=== PATIENT | female | born 1970 | race Hispanic/Latino ===

== ENCOUNTER 2017-07-01 18:41 | Emergency (ER) | payer BC ==
[2017-07-01 21:51] LABS: ALT (SGPT) 17 U/L (8-55); AST (SGOT) 25 U/L (5-34); Albumin 3.9 g/dL (3.5-5.0); Alkaline Phosphatase 85 U/L (40-150); Anion Gap 11 mmol/L (10-20); BUN (Urea Nitrogen) 13 mg/dL (7.0-18.7); Bilirubin, Total 0.7 mg/dL (0.2-1.2); Calc. Creatinine Clearance 0 mL/min (70-130); Calcium 8.8 mg/dL (7.8-10.44); Carbon Dioxide 24 mmol/L (22-29); Chloride 107 mmol/L (98-107); Estimated GFR-MDRD Greater than 90; Globulin 3.1 g/dL (2.4-3.5); Glucose 88 mg/dL (70-105); Magnesium 1.9 mg/dL (1.6-2.6); Potassium 3.6 mmol/L (3.5-5.1); Sodium 138 mmol/L (136-145)
[2017-07-01 21:55] LABS: CKMB 5.2 ng/mL (0-6.6); Troponin I Less than 0.010 ng/mL (< 0.028)
== END 2017-07-01 23:04 | disposition home or self-care (01) ==
LOC: ERS 18:41
DX: R51 Headache (principal)
CPT/HCPCS: 36415; 80053; 82553; 83735; 84484; 93005

== ENCOUNTER 2017-08-07 07:13 | Outpatient (CLI) | payer BC, OTHER | END 2017-08-07 07:14 | disposition home or self-care (01) | LOC: BICMRI 07:13 | PROVIDERS: ATTEND Psychiatry & Neurology Neurology | DX: G44.1 Vascular headache, not elsewhere classified (principal) | CPT/HCPCS: 70553 ==

== ENCOUNTER 2017-08-31 07:57 | Outpatient (CLI) | payer BC | END 2017-08-31 07:58 | disposition home or self-care (01) | LOC: BICMAMMO 07:57 | PROVIDERS: ATTEND Family Medicine | DX: Z12.31 Encounter for screening mammogram for malignant neoplasm of breast (principal) | CPT/HCPCS: 77063; 77067 ==

== ENCOUNTER 2019-04-01 07:58 | Outpatient (CLI) | payer BC ==
--- NOTE | 2019-04-01 08:49 | MMO ---
Bilateral MAMMO Bilat Screen [facility]. CLINICAL HISTORY: Patient is 48 years old and is seen for screening. The patient has no family history of breast cancer. The patient has no personal history of cancer. VIEWS: The views performed were: bilateral craniocaudal with tomosynthesis and bilateral mediolateral oblique with tomosynthesis. FILMS COMPARED: The present examination has been compared to prior imaging studies performed at [facility] on 01/08/2009, 12/30/2010, 12/15/2013 and 08/31/2017. This study has been interpreted with the assistance of computer-aided detection. MAMMOGRAM FINDINGS: There are scattered fibroglandular densities. There are stable benign appearing calcifications seen in both breasts. There are also vascular calcifications. There are no suspicious masses, suspicious calcifications, or new areas of architectural distortion. IMPRESSION: THERE IS NO MAMMOGRAPHIC EVIDENCE OF MALIGNANCY. A ROUTINE FOLLOW-UP MAMMOGRAM IN 1 YEAR IS RECOMMENDED. THE RESULTS OF THIS EXAM WERE SENT TO THE PATIENT. ACR BI-RADS Category 2 - Benign finding MAMMOGRAPHY NOTE: 1. A negative mammogram report should not delay a biopsy if a dominant of clinically suspicious mass is present. 2. Approximately 10% to 15% of breast cancers are not detected by mammography. 3. Adenosis and dense breasts may obscure an underlying neoplasm. Reported by: LIBRA FALCON MD Electonically Signed: [id number]
== END 2019-04-01 07:59 | disposition home or self-care (01) ==
LOC: BICMAMMO 07:58
PROVIDERS: ATTEND Physician Assistant Medical
DX: Z12.31 Encounter for screening mammogram for malignant neoplasm of breast (principal)
CPT/HCPCS: 77063; 77067

== ENCOUNTER 2019-07-25 11:14 | Emergency (ER) | payer BC, OTHER ==
[2019-07-25 18:49] LABS: SARS-CoV-2 MS2 Positive; SARS-CoV-2 N Gene Positive; SARS-CoV-2 S Gene Positive; SARS-CoV-2 orf1ab Positive
== END 2019-07-25 11:51 | disposition home or self-care (01) ==
LOC: ERS 11:14
DX: U07.1 COVID-19 (principal); R05 Cough; I10 Essential (primary) hypertension; F32.9 Major depressive disorder, single episode, unspecified; Z79.899 Other long term (current) drug therapy
CPT/HCPCS: 87635; 99283; U0003

== ENCOUNTER 2019-08-10 14:43 | Emergency (ER) | payer BC, OTHER ==
[~2019-08-10 14:43] MED LIST: Iopamidol-370 76% 500 ML 1 ML ONE
[2019-08-10 15:53] LABS: #Eosinphils 0.2 thou/uL (0.0-0.7); #Lymphocytes 2.7 thou/uL (1.20-3.40); #Monocytes 0.7 thou/uL (0.11-0.59); #Neutrophils 4.5 thou/uL (1.40-6.50); %Basophils 0.3 % (0.0-1.0); %Eosinophils 2.8 % (0.0-10.0); %Lymphocytes 33.3 % (21.0-51.0); %Monocytes 8.2 % (0.0-10.0); %Neutrophils 55.4 % (42.0-75.0); Mean Corpuscular Hemoglobin 30.2 pg (27.0-31.0); Mean Platelet Volume 7.2 fL (7.4-10.4); Platelet Count 316 thou/uL (130-400); RBC Distribution Width 11.8 % (11.5-14.5); Red Blood Cell (RBC) Count 4.29 mill/uL (4.20-5.40); White Blood Cell (WBC) Count 8.1 thou/uL (4.8-10.8)
[2019-08-10 16:16] LABS: ALT (SGPT) 37 U/L (8-55); AST (SGOT) 37 U/L (5-34); Alkaline Phosphatase 99 U/L (40-110); Anion Gap 13 mmol/L (10-20); BUN (Urea Nitrogen) 16 mg/dL (7.0-18.7); Bilirubin, Total 0.7 mg/dL (0.2-1.2); Calc. Creatinine Clearance 0 mL/min (70-130); Carbon Dioxide 25 mmol/L (22-29); Chloride 106 mmol/L (98-107); Estimated GFR-MDRD Greater than 90; Globulin 3.7 g/dL (2.4-3.5); Glucose 87 mg/dL (70-105); Potassium 4.4 mmol/L (3.5-5.1); Protein, Total 7.7 g/dL (6.0-8.3); Sodium 140 mmol/L (136-145)
--- NOTE | 2019-08-10 16:46 | CT ---
CTA CHEST WITH CONTRAST: 08/10/19 Axial tomograms obtained with multiplanar reconstruction and 3D postprocessing following an angio pro tocol. INDICATIONS: Positive COVID-19. Cough. Shortness of breath. FINDINGS: Pulmonary arteries show normal opacification. No evidence of pulmonary embolus. Thoracic aorta shows no evidence of dissection or aneurysm. Review of the lung meredith shows no evidence of infiltrate. Mild atelectasis in the lingula peripheral ly. No effusion. No adenopathy. Images through upper abdomen again reveals a large calcified gallston e in the neck of the gallbladder. This was described on a prior exam. There is a 3 mm nodule in the mid left lung, left upper lobe. This nodule was present on the CT chest of 2017 and is stable. IMPRESSION: 1. No evidence of pulmonary embolus. 2. No evidence of lung infiltrate or other acute process. 3. Cholelithiasis again noted. POS: ASHW
[2019-08-10] MEDS ORDERED: Ketorolac Tromethamine 30 MG/ML VIAL ONE (16:49)
--- NOTE | 2019-08-11 15:23 | EKG ---
Test Reason : Blood Pressure : / mmHG Vent. Rate : 062 BPM Atrial Rate : 062 BPM P-R Int : 170 ms QRS Dur : 090 ms QT Int : 432 ms P-R-T Axes : 044 -14 014 degrees QTc Int : 438 ms Normal sinus rhythm Normal ECG Confirmed by KALEY REMY DO ([id number]), newspaper copy editor GISSELL MONTALVO ([id number]) on 08/11/2019 3:22:47 PM Referred By: Confirmed By:KALEY REMY DO
== END 2019-08-10 17:18 | disposition home or self-care (01) ==
LOC: ERS 14:43
DX: U07.1 COVID-19 (principal); R05 Cough; M54.6 Pain in thoracic spine; I10 Essential (primary) hypertension; F32.9 Major depressive disorder, single episode, unspecified
CPT/HCPCS: 71275; 80053; 85025; 93005; 96374; J1885; Q9967

== ENCOUNTER 2019-08-17 16:53 | Emergency (ER) | payer BC, OTHER ==
--- NOTE | 2019-08-17 19:55 | ULT ---
RIGHT UPPER EXTREMITY VENOUS DUPLEX EXAM: 08/17/19 HISTORY: Right arm pain and swelling. Real time color Doppler evaluation of the right upper extremity was performed to include the internal jugular, subclavian, axillary, branchial, basilic and cephalic veins. Also included forearm veins. T his shows a patent deep venous system. There is normal compressibility and augmentation. IMPRESSION: No evidence of DVT of the right upper extremity. POS: ALEXSI
== END 2019-08-17 20:32 | disposition home or self-care (01) ==
LOC: ERS 16:53
DX: U07.1 COVID-19 (principal); M79.601 Pain in right arm; I10 Essential (primary) hypertension; F32.9 Major depressive disorder, single episode, unspecified

== ENCOUNTER 2023-02-04 10:24 | Emergency (ER) | payer BC ==
[2023-02-04] MEDS ORDERED: Iopamidol-370 76% 500 ML MDV (1 ML CHARGE) ONE (10:43)
[2023-02-04] MEDS ORDERED: Aspirin Chewable 81 MG TAB ONE (10:59)
[2023-02-04 11:09] LABS: #Eosinphils 0.2 thou/uL (0.0-0.7); #Monocytes 0.5 thou/uL (0.11-0.59); #Neutrophils 3.4 thou/uL (1.40-6.50); %Basophils 0.6 % (0.0-1.0); %Eosinophils 3.2 % (0.0-10.0); %Lymphocytes 38.4 % (21.0-51.0); %Monocytes 7.2 % (0.0-10.0); %Neutrophils 50.3 % (42.0-75.0); Hematocrit 38.2 % (36.0-47.0); Hemoglobin 12.6 g/dL (12.0-16.0); Mean Corpuscular Hemoglobin 29.9 pg (27.0-31.0); Mean Corpuscular Volume 90.5 fl (78.0-98.0); Mean Platelet Volume 9.3 fL (7.4-10.4); Platelet Count 279 10x3/uL (130-400); RBC Distribution Width 12.6 % (11.5-14.5); Red Blood Cell (RBC) Count 4.22 mill/uL (4.20-5.40); White Blood Cell (WBC) Count 6.8 10x3/uL (4.8-10.8)
[2023-02-04 11:28] LABS: Troponin I Less than 0.010 ng/mL (< 0.028)
[2023-02-04 11:34] LABS: ALT (SGPT) 19 U/L (8-55); AST (SGOT) 26 U/L (5-34); Albumin 4.5 g/dL (3.5-5.0); Alkaline Phosphatase 106 U/L (40-110); Anion Gap 9 mmol/L (10-20); BUN (Urea Nitrogen) 11 mg/dL (9.8-20.1); Bilirubin, Total 0.7 mg/dL (0.2-1.2); Calc. Creatinine Clearance 0 mL/min (70-130); Carbon Dioxide 28 mmol/L (22-29); Estimated GFR 106; Glucose 93 mg/dL (70-105); Potassium 3.8 mmol/L (3.5-5.1); Protein, Total 7.5 g/dL (6.0-8.3)
[2023-02-04 11:36] LABS: Bacteria/HPF None Seen HPF (None Seen); Bilirubin Negative (Negative); Blood, Urine Negative (Negative); CAUTI Indications for Culture Pelvic or flank pain; Clarity Clear (Clear); Glucose, Urine (Dipstick) Normal (Negative); Ketone, Urine Negative (Negative); Leukocyte Negative Leu/uL (Negative); Nitrite Negative (Negative); Protein, Urine (Dipstick) Negative (Neg-Trace); RBC/HPF 0-3 HPF (0-3); Specific Gravity, Urine 1.007 (1.002-1.036); Squamous Epithelial 0-3 HPF (0-3); Urobilinogen Normal mg/dL (Less than 2); WBC/HPF 0-3 HPF (0-3); pH, Urine 6.5 (5.0-9.0)
[2023-02-04 11:38] LABS: Urine Culture Reflex No No
[2023-02-04 11:49] LABS: Chloride 106 mmol/L (98-107); Sodium 139 mmol/L (136-145)
== END 2023-02-04 13:15 | disposition home or self-care (01) ==
LOC: ERS 10:24
DX: R07.89 Other chest pain (principal); I10 Essential (primary) hypertension
CPT/HCPCS: 71045; 71275; 80053; 81001; 84484; 85025; 85379; 93005; Q9967